=== PATIENT | female | born 1975 | race Caucasian/White ===

== ENCOUNTER 2022-11-12 08:34 | Day surgery (SDC) | payer OTHER ==
[2022-11-12] MEDS ORDERED: FERRIC CARBOXYMALTOSE 750 MG in SODIUM CHLORIDE 250 ML IVPB ONE (10:00)
[2022-11-12 16:22] VITALS: BP 138/70; PULSE 79; RESP 20; TEMP 98.4
== END 2022-11-12 10:58 | disposition home or self-care (01) ==
LOC: JONCNONCHE 08:34
PROVIDERS: ATTEND Internal Medicine Hematology & Oncology
PROC: 3E033GC Introduction of Other Therapeutic Substance into Peripheral Vein, Percutaneous Approach (ICD-10-PCS; principal; 2022-11-12)
DX: D50.9 Iron deficiency anemia, unspecified (principal)
CPT/HCPCS: 96365; J1439

== ENCOUNTER 2022-11-19 09:01 | Day surgery (SDC) | payer OTHER ==
[2022-11-19] MEDS ORDERED: FERRIC CARBOXYMALTOSE 750 MG in SODIUM CHLORIDE 250 ML IVPB ONE (10:00)
[2022-11-19 11:35] VITALS: BP 108/70; PULSE 78; RESP 19; TEMP 98.3
== END 2022-11-19 10:50 | disposition home or self-care (01) ==
LOC: JONCNONCHE 09:01
PROVIDERS: ATTEND Internal Medicine Hematology & Oncology
PROC: 3E033GC Introduction of Other Therapeutic Substance into Peripheral Vein, Percutaneous Approach (ICD-10-PCS; principal; 2022-11-19)
DX: D50.9 Iron deficiency anemia, unspecified (principal)
CPT/HCPCS: 96365; J1439

== ENCOUNTER 2023-07-29 09:41 | Day surgery (SDC) | payer OTHER ==
[2023-07-29] MEDS ORDERED: FERRIC CARBOXYMALTOSE 750 MG in SODIUM CHLORIDE 250 ML IVPB ONE (10:00)
[2023-07-29 15:45] VITALS: BP 135/78; PULSE 101; RESP 75; TEMP 98.2
== END 2023-07-29 11:20 | disposition home or self-care (01) ==
LOC: JONCNONCHE 09:41 → J7W 09:43 → JONCNONCHE 11:20
PROVIDERS: ATTEND Internal Medicine Hematology & Oncology
PROC: 3E033GC Introduction of Other Therapeutic Substance into Peripheral Vein, Percutaneous Approach (ICD-10-PCS; principal; 2023-07-29)
DX: D50.9 Iron deficiency anemia, unspecified (principal)
CPT/HCPCS: 96365; J1439

== ENCOUNTER 2023-08-05 11:15 | Day surgery (SDC) | payer OTHER ==
[2023-08-05] MEDS ORDERED: FERRIC CARBOXYMALTOSE 750 MG in SODIUM CHLORIDE 250 ML IVPB ONE (11:30)
[2023-08-05 14:45] VITALS: BP 115/77; PULSE 79; RESP 20; TEMP 97.9
== END 2023-08-05 12:55 | disposition home or self-care (01) ==
LOC: J7W 11:15 → JONCNONCHE 11:15
PROVIDERS: ATTEND Internal Medicine Hematology & Oncology
PROC: 3E033GC Introduction of Other Therapeutic Substance into Peripheral Vein, Percutaneous Approach (ICD-10-PCS; principal; 2023-08-05)
DX: D50.9 Iron deficiency anemia, unspecified (principal)
CPT/HCPCS: 96365; J1439

== ENCOUNTER 2024-03-16 10:18 | Day surgery (SDC) | payer OTHER ==
[2024-03-16] MEDS: FERRIC CARBOXYMALTOSE 750 MG in SODIUM CHLORIDE 250 ML IVPB ONE (10:45)
[2024-03-16 11:52] VITALS: RESP 18; TEMP 98.5
[2024-03-16 11:56] VITALS: BP 129/77; PULSE 75
== END 2024-03-16 11:40 | disposition home or self-care (01) ==
LOC: JONCNONCHE 10:18 → J7W 10:19 → JONCNONCHE 11:40
PROVIDERS: ATTEND Internal Medicine Hematology & Oncology
PROC: 3E033GC Introduction of Other Therapeutic Substance into Peripheral Vein, Percutaneous Approach (ICD-10-PCS; principal; 2024-03-16)
DX: D50.9 Iron deficiency anemia, unspecified (principal)
CPT/HCPCS: 96365; J1439

== ENCOUNTER 2024-03-30 12:15 | Day surgery (SDC) | payer OTHER ==
[2024-03-30] MEDS: FERRIC CARBOXYMALTOSE 750 MG in SODIUM CHLORIDE 250 ML IVPB ONE (12:37)
[2024-03-30 14:49] VITALS: TEMP 98.6
[2024-03-30 14:53] VITALS: BP 123/71; PULSE 68; RESP 20
== END 2024-03-30 13:30 | disposition home or self-care (01) ==
LOC: J7W 12:15 → JONCNONCHE 12:15
PROVIDERS: ATTEND Internal Medicine Hematology & Oncology
PROC: 3E033GC Introduction of Other Therapeutic Substance into Peripheral Vein, Percutaneous Approach (ICD-10-PCS; principal; 2024-03-30)
DX: D50.9 Iron deficiency anemia, unspecified (principal)
CPT/HCPCS: 96365; J1439